=== PATIENT | male | born 1995 | race Caucasian/White ===

== ENCOUNTER 2017-10-17 17:25 | Emergency (ER) | payer OTHER ==
--- NOTE | 2017-10-17 17:27 | ED Physician Documentation ---
Upper Respiratory Symptoms - HISTORIAN Historian: patient - HPI Stated Complaint: fever and neck pain Chief Complaint: Fever Onset: days ago (3) Duration: denies: constant, sudden-Onset, intermittent episodes Context: denies: recent foreign travel, insect bite(s) Severity: mild Associated Symptoms: fever, chills, sweating, chest pain. denies: productive cough, shortness of breath Worsened by Deep Breath: No Further Comments: yes (He states 3 days ago he started to run a fever. He did not measure the fever. He is taking Ibuprofen only when he feels symptomatic. states that he feels mostly ok in am and then now in pm he gets headche, neck pain that is sore to touch but denies any decreased ROM and what he feels like a fever. states his headache is frontal and is increased when he bends over. eating and drinking normally) - ROS CONST/EYES: denies: weakness, eye redness CVS/RESP: denies: shortness of breath LYMPH: denies: rash GI/: none NEURO/PSYCH: denies: fainting, dizziness, confusion MS/SKIN: joint pain, muscle aches - PAST HX Lung Disease: none PE Risk Factors: none Surgeries/Procedures: none Immunizations: UTD - SOCIAL HX Smoking History: non-smoker Alcohol Use: none Drug Use: none - FAMILY HX Family History: none - VITAL SIGNS Vital Signs: Vital Signs Temp Pulse Resp BP Pulse Ox 100.3 F H 118 H 18 142/85 97 10/17/17 17:33 10/17/17 17:33 10/17/17 17:33 10/17/17 17:33 10/17/17 17:33 - REVIEWED ASSESSMENTS Nursing Assessment Reviewed: Yes Vitals Reviewed: Yes Upper Respiratory Symptoms - EXAM General Appearance: no acute distress, alert EENT: eyes nml inspection, TM erythema (right ear ), airway nml, pharyngeal erythema Neck: normal inspection, thyroid normal, supple, other (mild tenderness with palpation ). No: lymphadenopathy, stiff neck Respiratory: no resp. distress, breath sounds nml Abdomen: non-tender, no organomegaly, nml bowel sounds CVS: reg rate & rhythm, heart sounds normal, equal pulses, no murmur Skin: color nml, no rash, warm,dry Extremities: non-tender, normal range of motion, no evidence of injury, no edema Neuro/Psych: oriented x3, neuro intact, mood/affect nml Discharge Clincal Impression: Sinusitis Qualifiers: Sinusitis location: frontal Chronicity: acute Recurrence: non-recurrent Qualified Code(s): J01.10 - Acute frontal sinusitis, unspecified Comments: 1. Augmentin 875/125mg take 1 by mouth BID 2. Medrol Dose pack take as directed 3. Fluids 4. Tylenol or Ibuprofen as needed for fever or pain 5. See PCP in 3-5 days 6. Return to ER for any concerns Condition: Stable Disposition: 01 HOME, SELF-CARE Decision to Admit: NO Date of Decison to Admit: 10/17/17 Decision Time: 17:43
[2017-10-17 17:50] VITALS: BP 142/85
== END 2017-10-17 17:48 | disposition home or self-care (01) ==
LOC: ED 17:25
DX: J01.10 Acute frontal sinusitis, unspecified (principal)
CPT/HCPCS: 99282